=== PATIENT | female | born 2000 | race Caucasian/White ===

== ENCOUNTER → 2019-12-14 | Outpatient (CLI) | payer OTHER | END | disposition home or self-care (01) | LOC: LAB 10:20 → LAB SHORT 10:20 | PROVIDERS: Obstetrics & Gynecology | DX: Z01.419 Encounter for gynecological examination (general) (routine) without abnormal findings (principal) | CPT/HCPCS: G0123 ==

== ENCOUNTER 2021-04-08 08:27 | Emergency (ER) | payer OTHER ==
[~2021-04-08] VITALS: Ht 175.3 cm; Wt 52.6 kg
[2021-04-08] MEDS ORDERED: BUSP5 PO (09:35)
[2021-04-08] MEDS ORDERED: ESCI10 PO (09:35)
[2021-04-08 09:49] LABS: Source, Urine Clean Catch
[2021-04-08 09:52] LABS: Appearance, Urine Cloudy (Clear); Bilirubin, Urine Neg (Neg); Blood, Urine Neg (Neg); Color, Urine Yellow (P-Yellow); Glucose Qualitative, Urine Neg (Neg); Ketones, Urine Neg (Neg); Leukocyte Esterase, Urine Neg (Neg); Nitrite, Urine Neg (Neg); Protein, Urine 1+ (Neg); Specific Gravity, Urine 1.015 (1.003-1.022); Urobilinogen, Urine NORM (Normal)
[2021-04-08 10:09] LABS: Bacteria Rare /hpf; Squamous Epithelial Cells Mod /hpf (Few)
[2021-04-08 10:11] LABS: Amorphous Heavy (0-Heavy); Red Blood Cells, Urine Not Seen /hpf (0-2); White Blood Cells, Urine Not Seen /hpf (0-5)
[2021-04-08 10:12] LABS: Mucus Not Seen (0-Heavy)
[2021-04-08 10:37] LABS: BASOPHILS ABSOLUTE AUTO 0.02 K/mm3 (0.00-0.23); BASOPHILS PERCENT AUTO 0 % (0-2); EOSINOPHILS ABSOLUTE AUTO 0.15 K/mm3 (0.00-0.68); EOSINOPHILS PERCENT AUTO 2 % (0-6); Hematocrit 39.6 % (33.0-51.0); Hemoglobin 12.9 g/dL (11.5-16.0); IMMATURE GRAN ABSOLUTE AUTO 0.01 K/mm3 (0.00-0.10); IMMATURE GRAN PERCENT AUTO 0 % (0-1); LYMPHOCYTES ABSOLUTE AUTO 1.71 K/mm3 (0.84-5.20); LYMPHOCYTES PERCENT AUTO 23 % (21-46); MONOCYTES ABSOLUTE AUTO 0.52 K/mm3 (0.16-1.47); MONOCYTES PERCENT AUTO 7 % (4-13); Mean Corpuscular HGB 31.9 pg (26.0-34.0); Mean Corpuscular HGB Conc 32.6 g/dL (31.5-36.5); Mean Corpuscular Volume 98 fL (80-100); Mean Platelet Volume 9.7 fL (9.1-12.4); NEUTROPHILS PERCENT AUTO 68 % (41-73); Platelet Count 268 K/mm3 (150-400); RDW Coefficient Variation 13.2 % (11.7-14.2); RDW Standard Deviation 46.8 fL (35.1-46.3); Red Blood Cell Count 4.04 M/mm3 (3.80-5.20); White Blood Cell Count 7.51 K/mm3 (4.00-11.30)
[2021-04-08 10:51] LABS: Anion Gap 2 mmol/L (6-16); Blood Urea Nitrogen 10 mg/dL (8-24); Bun/Creatinine Ratio 14.4 (12.0-20.0); CO2, Blood 29 mmol/L (21-32); Calcium, Blood 8.1 mg/dL (8.5-10.1); Chloride, Blood 110 mmol/L (98-108); Creatinine, Blood 0.69 mg/dL (0.40-1.00); Glomerular Filtration Rate >60 (60-); Glucose, Blood 89 mg/dL (70-99); Potassium, Blood 4.2 mmol/L (3.5-5.5); Sodium, Blood 141 mmol/L (136-145)
[2021-04-08] MEDS ORDERED: ONDA4ODT MM (12:48)
== END 2021-04-08 13:24 | disposition home or self-care (01) ==
LOC: ER 08:27
PROVIDERS: Physician Assistant
DX: E86.0 Dehydration (principal); Z79.899 Other long term (current) drug therapy; X30.XXXA Exposure to excessive natural heat, initial encounter
CPT/HCPCS: 36415; 80048; 81001; 81025; 85025; 99284; A9270; J7030

== ENCOUNTER → 2022-05-13 | Outpatient (CLI) | payer OTHER ==
[~2022-05-13] MED LIST: BUSP5 PO; ESCI10 PO; ONDA4ODT MM
[2022-05-15 16:10] LABS: HPV 16 Negative (Negative); HPV 18 Negative (Negative); HPV OTHER HR TYPES Negative (Negative)
== END | disposition home or self-care (01) ==
LOC: LAB SHORT 13:32 → LAB 13:32
PROVIDERS: Family Medicine
DX: Z01.419 Encounter for gynecological examination (general) (routine) without abnormal findings (principal)
CPT/HCPCS: 87624; G0123

== ENCOUNTER 2023-04-14 15:11 | Emergency (ER) | payer OTHER ==
[~2023-04-14] VITALS: Ht 177.8 cm; Wt 56.7 kg
[2023-04-14 15:45] VITALS: BP 150/108
[2023-04-14 17:02] LABS: U Amphetamine Screen DETECTED; U Barbituate Screen Not Detected; U Benzodiazapine Screen Not Detected; U Buprenorphine Screen Not Detected; U Cannabinoids Screen DETECTED; U Cocaine Screen DETECTED; U Methadone Screen Not Detected; U Methamphetamine Screen Not Detected; U Opiates Screen Not Detected; U Oxycodone Screen Not Detected; U Phencyclidine Screen Not Detected; U Propoxyphene Screen Not Detected
[2023-04-17 04:10] LABS: CHLAMYDIA BY NAA Negative (Negative); GONOCOCCUS BY NAA Negative (Negative); TRICH VAG BY NAA Negative (Negative)
== END 2023-04-14 18:31 | disposition home or self-care (01) ==
LOC: ER 15:11
PROVIDERS: Emergency Medicine; Physician Assistant
DX: T40.5X1A Poisoning by cocaine, accidental (unintentional), initial encounter (principal); R41.0 Disorientation, unspecified; T76.21XA Adult sexual abuse, suspected, initial encounter; F17.200 Nicotine dependence, unspecified, uncomplicated; Z79.899 Other long term (current) drug therapy
CPT/HCPCS: 81025; 87491; 87591; 87661; 99284

== ENCOUNTER → 2024-12-08 | Outpatient (CLI) | payer OTHER ==
[2024-12-08 15:15] LABS: Bacterial Vaginosis PCR Positive (NEGATIVE); Candida Group, PCR NOT DETECTED (NOT DETECT); Candida glabrata-krusei, PCR NOT DETECTED (NOT DETECT)
== END ==
LOC: LAB 13:11 → LAB SHORT 13:11
PROVIDERS: Family Medicine
DX: Z01.419 Encounter for gynecological examination (general) (routine) without abnormal findings (principal); N89.8 Other specified noninflammatory disorders of vagina
CPT/HCPCS: 81515

== ENCOUNTER 2025-10-04 15:00 | Emergency (ER) | payer OTHER ==
[~2025-10-04] VITALS: Ht 175.3 cm; Wt 57.6 kg
[2025-10-04 15:21] VITALS: BP 126/87
[2025-10-04 16:09] LABS: Beta Hcg Serum Pregnancy Negative (Negative)
[2025-10-04 16:12] LABS: Mono Spot Negative (NEGATIVE)
[2025-10-04] MEDS ORDERED: Dexamethasone Sod Phos 10 MG/ML 1ML VIAL PO ONE (18:20)
[2025-10-04] MEDS ORDERED: PENVK500 PO ×2 (18:22→18:32)
== END 2025-10-04 18:36 | disposition home or self-care (01) ==
LOC: ER 15:00
PROVIDERS: Student in an Organized Health Care Education/Training Program
DX: J02.9 Acute pharyngitis, unspecified (principal); F17.200 Nicotine dependence, unspecified, uncomplicated
CPT/HCPCS: 36415; 84703; 86308; 87081; 87430; 99283; A9270; J1100